=== PATIENT | female | born 1985 | race Caucasian/White ===

== ENCOUNTER 2016-06-12 00:14 | Emergency (ER) | payer OTHER ==
[~2016-06-12] VITALS: Ht 165.1 cm; Wt 62.7 kg
[2016-06-12 00:18] VITALS: Ht 165.1 cm; Wt 62.7 kg
[2016-06-12 00:47] LABS: URINE BLOOD (Dip) POC 2+ (NEGATIVE)
[2016-06-12] MEDS ORDERED: ONDANSETRON 4 MG INJ IV STA (01:54)
[2016-06-12] MEDS ORDERED: PANTOPRAZOLE 40 MG INJ IV ONE (02:00)
[2016-06-12 03:08] LABS: ADD SCAN DIFF NO
[2016-06-12 03:24] LABS: INR 1.14; PROTIME 14.6 Sec (12.2-14.2); PT RATIO 1.1
[2016-06-12 03:25] LABS: PARTIAL THROMBOPLASTIN TIME 28.1 Sec (25.0-35.0)
[2016-06-12 03:28] LABS: ALBUMIN 4.2 g/dl (3.3-4.9)
[2016-06-12 03:29] LABS: POTASSIUM 3.9 mmol/L (3.5-5.1)
[2016-06-12 03:31] LABS: ALBUMIN/GLOBULIN RATIO 1.35; BILIRUBIN,INDIRECT 0.1 mg/dl (0-1.1); BILIRUBIN,TOTAL 0.1 mg/dl (0.2-1.3); CREATININE 0.53 mg/dl (0.44-1.00); TOTAL PROTEIN 7.3 g/dl (6.1-8.1)
[2016-06-12 03:32] LABS: CALCIUM 8.8 mg/dl (8.4-10.2)
[2016-06-12 03:41] LABS: BASOPHIL # 0.1 10^3/ul (0.0-0.1); BASOPHILS % 0.5 % (0.0-2.0); EOSINOPHILS # 0.2 10^3/ul (0.0-0.5); EOSINOPHILS % 1.4 % (0.0-7.0); HEMATOCRIT 38.9 % (37.0-47.0); HEMOGLOBIN 13.2 g/dl (12.0-16.0); LYMPHOCYTES # 2.1 10^3/ul (0.8-2.9); LYMPHOCYTES % 19.5 % (15.0-51.0); MEAN CORPUSCULAR HEMOGLOBIN 33.3 pg (29.0-33.0); MEAN CORPUSCULAR HGB CONC 33.9 g/dl (32.0-37.0); MEAN CORPUSCULAR VOLUME 98.2 fl (82.0-101.0); MEAN PLATELET VOLUME 9.8 fl (7.4-10.4); MONOCYTE # 0.5 10^3/ul (0.3-0.9); MONOCYTES % 4.8 % (0.0-11.0); NEUTROPHIL # 8.1 10^3/ul (1.6-7.5); NEUTROPHILS % 73.6 % (39.0-77.0); PLATELET COUNT 369 10^3/UL (140-415); RED BLOOD COUNT 3.96 10^6/ul (4.20-5.40); RED CELL DISTRIBUTION WIDTH 12.6 % (11.5-14.5)
[2016-06-12 04:44] VITALS: BP 114/70; PULSE 82; RESP 16; TEMP 98.6
[2016-06-12] MEDS ORDERED: BACTDS PO (04:56)
[2016-06-12] MEDS ORDERED: ONDA4TAB14 PO (04:56)
[2016-06-12] MEDS ORDERED: PANT40TA3 PO (04:57)
--- NOTE | 2016-06-12 05:03 | ERA ---
ER Documentation Chief Complaint Date/Time DATE: 06/12/16 Chief Complaint vomiting blood after receiving shot for nausea per EMS report, c/o [facility] [place] The patient is a 30-year-old female, under [employer] custody since 6 PM. She was sent to the ER because he vomited with questionable bloody emesis after she received antiemetic medication and [facility]. She could not tell me exactly how much blood she vomited. She felt much better at this time. She denies fever, chills, neck pain, chest pain, dyspnea, dysuria , diarrhea, constipation. She smokes marijuana, drinks socially Past medical history: PTSD, asthma Past surgical history: None ROS All systems reviewed and are negative except as per history of present illness. Medications Home Meds Active Scripts Pantoprazole* (Protonix*) 40 Mg Tablet.dr, 40 MG PO DAILY, #10 TAB Prov:ORQUIDEA LINN MD 06/12/16 Ondansetron (Ondansetron Odt) 4 Mg Tab.rapdis, 4 MG PO Q6H Y for NAUSEA AND/OR VOMITING, #10 TAB Prov:ORQUIDEA LINN MD 06/12/16 Sulfamethoxazole-Trimethoprim* (Bactrim* DS) 800-160 Mg Tab, 1 TAB PO BID for 5 Days, TAB Prov:ORQUIDEA LINN MD 06/12/16 Allergies Allergies: Coded Allergies: No Known Allergy (Unverified , 06/12/16) PMhx/Soc Medical and Surgical Hx: pt denies Medical Hx, pt denies Surgical Hx History of Surgery: Yes Anesthesia Reaction: No Hx Neurological Disorder: No Hx Respiratory Disorders: No Hx Cardiac Disorders: No Hx Psychiatric Problems: No Hx Miscellaneous Medical Probl: No Hx Alcohol Use: Yes Hx Substance Use: Yes (THC) Hx Tobacco Use: No Smoking Status: Never smoker Physical Exam Vitals Vital Signs Date Time Temp Pulse Resp B/P Pulse Ox O2 Delivery O2 Flow Rate FiO2 06/12/16 04:44 98.6 82 16 114/70 97 Room Air 06/12/16 00:18 98.1 81 18 132/87 96 Physical Exam Const: No acute distress. Head: Atraumatic. Eyes: Normal Conjunctiva. ENT: Normal External Ears, Nose and Mouth. Neck: Full range of motion. No meningismus. Resp: Clear to auscultation bilaterally. Cardio: Regular rate and rhythm, no murmurs. Abd: Soft, non distended, normal bowel sounds, minimal epigastric discomfort, no rigidity, rebound, CVA tenderness Skin: No petechiae or rashes. Back: No midline or flank tenderness. Ext: No cyanosis, or edema. Neur: Awake and alert. No focal deficit Psych: Normal Mood and Affect. Result Diagram: 06/12/16 0230 06/12/16 0230 Results 24 hrs Laboratory Tests Test 06/12/16 00:49 06/12/16 02:30 Bedside Urine Blood 2+ Bedside Urine Glucose (UA) Negative Bedside Urine Ketones (LAB) Negative Bedside Urine Leukocyte Esterase (L Negative Bedside Urine Nitrite (LAB) Positive Bedside Urine Protein (LAB) 2+ Bedside Urine pH (LAB) 6.0 Activated Partial Thromboplast Time 28.1Sec Alanine Aminotransferase (ALT/SGPT) 20IU/L Albumin 4.2g/dl Albumin/Globulin Ratio 1.35 Alkaline Phosphatase 70IU/L Anion Gap 19 Aspartate Amino Transf (AST/SGOT) 32IU/L Basophils # 0.110^3/ul Basophils % 0.5% Blood Urea Nitrogen 10mg/dl Calcium Level 8.8mg/dl Carbon Dioxide Level 25mmol/L Chloride Level 106mmol/L Creatinine 0.53mg/dl Direct Bilirubin 0.00mg/dl Eosinophils # 0.210^3/ul Eosinophils % 1.4% Globulin 3.10g/dl Glucose Level 82mg/dl Hematocrit 38.9% Hemoglobin 13.2g/dl INR International Normalized Ratio 1.14 Indirect Bilirubin 0.1mg/dl Lipase 32U/L Lymphocytes # 2.110^3/ul Lymphocytes % 19.5% Mean Corpuscular Hemoglobin 33.3pg Mean Corpuscular Hemoglobin Concent 33.9g/dl Mean Corpuscular Volume 98.2fl Mean Platelet Volume 9.8fl Monocytes # 0.510^3/ul Monocytes % 4.8% Neutrophils # 8.110^3/ul Neutrophils % 73.6% Nucleated Red Blood Cells # 0.010^3/ul Nucleated Red Blood Cells % 0.0/100WBC Platelet Count 27815^3/UL Potassium Level 3.9mmol/L Prothrombin Time 14.6Sec Prothrombin Time Ratio 1.1 Red Blood Count 3.9610^6/ul Red Cell Distribution Width 12.6% Sodium Level 146mmol/L Total Bilirubin 0.1mg/dl Total Protein 7.3g/dl White Blood Count 11.010^3/ul Current Medications Medications (Trade) Dose Ordered Sig/Gris Route PRN Reason Start Time Stop Time Status Last Admin Dose Admin Ondansetron HCl (Zofran Inj) 4 mg ONCE STAT IV 06/12/16 01:54 06/12/16 01:57 DC 06/12/16 03:59 Pantoprazole (Protonix Iv) 40 mg ONCE ONCE IV 06/12/16 02:00 06/12/16 02:01 DC 06/12/16 03:59 Procedures/MDM MEDICAL MAKING DECISION: The patient is a 40-year-old female under custody, presenting with questionable hematemesis. She refused nasogastric tube, Risks , benefits, alternatives were explained to the patient. Risks include but not limited to and permanent disability. She remains well in the emergency department. She was treated with Zofran 4mg IV for nausea and Protonix 40 mg IV for epigastric discomfort. The differential diagnoses considered include but are not limited to acute upper GI bleed, cholelithiasis, cholecystitis, cystitis, pancreatitis, hepatitis, gastritis, peptic ulcer disease, gastric ulcer, appendicitis, diverticulitis, cholangitis, choledocholithiasis, partial small bowel obstruction. Departure Diagnosis: Primary Impression: Hematemesis Additional Impression: UTI (urinary tract infection) Condition: Good Patient Instructions: Understanding Urinary Tract Infections (UTIs) Additional Instructions: Call the group home doctor TOMORROW for an appointment during the next 1-2 days.See the doctor sooner or return here if your condition worsens before your appointment time. She was discharged with Bactrim DS, Zofran ODT, Protonix The patient's blood pressure was elevated (>120/80) but appears stable without evidence of hypertension emergency or urgency. The patient was counseled about the risks of hypertension and urged to pursue outpatient monitoring and therapy within a week with their primary care physician. ORQUIDEA LINN MD Jun 12, 2016 05:03
== END 2016-06-12 05:29 | disposition home or self-care (01) ==
LOC: E/R 00:14
DX: K92.0 Hematemesis (principal); N39.0 Urinary tract infection, site not specified; J45.909 Unspecified asthma, uncomplicated
CPT/HCPCS: 36415; 80053; 81003; 83690; 85025; 85610; 85730; 96374; 96375; 99284; C9113; J2405